=== PATIENT | female | born 1965 | race Caucasian/White ===

== ENCOUNTER 2016-05-07 19:39 | Emergency (ER) | payer MEDICARE, MEDICAID ==
[2008-09-27 23:47] VITALS: BP 129/66
[~2016-05-07] VITALS: Ht 170.2 cm; Wt 154.5 kg
[~2016-05-07 19:39] MED LIST: 00186-0370-20 IH; ABILIFY30 MG PO; ALDACTONE; ALDACTONE50 MG PO; ALTACE 10MG TAB10 MG PO; AMBIEN 10MG10 MG PO; AMBIEN10 MG PO; AMBIEN5 MG PO; ASPIRIN 81M81 MG/TA2 PO; ASPIRIN E.C. 8181 MG PO; BUSPIRONE; BUSPIRONE15 MG PO; CLARITIN; CLEOCIN HCL300 MG PO; CLINDAMYCIN HC150 MG PO; COZAAR; CYMBALTA20 MG PO; DARVOCET-N-101 UDTAB PO; DESYREL; DESYREL DIVIDO150 M1 PO; DEXAMETHASONE4 MG PO; DOXYCYCLINE 10100 MG PO; EPI EZ PEN0.5 MG/ML IM; EPI EZ PEN1 MG/ML IM; EPI-PEN1 MG/ML MR; FLONASE NASAL S16 GM NS; FLONASE0.05 MG/AC NS; GABAPENTIN; GABAPENTIN300 M1 PO; GABAPENTIN800 MG PO; GEODON40 MG PO; GRALISE300 MG PO; HCTZ; HCTZ 25MG TAB25 MG PO; HCTZ 25MG25 MG PO; INDERAL 10MG10 MG PO; INDERAL 20MG20 MG PO; INSULIN LANTIS; LAMICTAL 100MG100 MG PO; LAMICTAL XR200 MG PO; LAMOTRIGINE; LANTUS100 U/ML; LANTUS100 U/ML SC; LORATADINE10 MG PO; LORTAB 5/500 501 TAB PO; METFORMIN1000 MG PO; MINIPRESS 1M1 MG/CAP PO; NAPROSYN PO; NASONEX0.05 MG/AC NS; NEURONTIN300 MG/CAP PO; NEXIUM 40MG40 MG PO; NEXIUM PO; NEXIUM40 MG PO; NORCO 325 MG-101 TAB PO; NORCO 325 MG-51 TAB PO; NOVOLOG 100U100 U/M1 SC; NOVOLOG 100U100 U/ML SQ; NOVOLOG100 U/ML SC; PENICILLIN V250 MG PO; PERCOCET 5/321 UDTAB PO; PHENERGAN 25 TA25 MG PO; PROAIR; PROPRANOLOL10 MG PO; REMERON30 MG PO; ROBAXIN 75750 MG/TAB PO; SEROQUEL 1100 MG/TAB PO; SEROQUEL400 MG PO; SEROQUEL50 MG PO; SYMBICORT1 AE2 IH; SYMBICORT1 AER IH; SYMMETREL100 M1 PO; TEGRETOL 2200 MG/TA1 PO; TEGRETOL200 MG PO; TESSALON PERLE100 MG PO; TRAZODONE HCL100 MG PO; TRILEPTAL300 MG PO; ULTRAM 50MG TAB50 MG PO; VISTARIL50 MG PO; WELLBUTRIN PO; WELLBUTRIN XL300 M1 PO; ZITHROMAX 250M250 MG PO; [UNRECOGNIZED DRUG - OTHER]
[2016-05-07 19:44] VITALS: TEMP 97.6
[2016-05-07 20:16] LABS: BASO % 0.3 % (0.0-2.0); EOS # 0.4 (0.0-0.7); EOS % 3.1 % (0-4.0); GRAN # 10.8 (1.4-6.5); HEMATOCRIT 38.2 % (37.0-47.0); LYMPH # 1.5 (1.2-3.4); LYMPH % 10.6 % (20.0-51.0); MEAN CELL VOLUME 85 fl (80.0-100.0); MEAN CORPUSCULAR HEMOGLOBIN 26 pg (27.0-31.0); MEAN CORPUSCULAR HGB CONC 31 g/dl (33.0-37.0); MEAN PLATELET VOLUME 8.9 fl (7.4-10.4); MONO # 0.9 (0.1-0.6); MONO % 6.4 % (1.7-9.3); PLATELET COUNT 258 K/mm3 (130-400); RED BLOOD COUNT 4.48 M/mm3 (4.10-5.30); REDCELL DISTRIBUTION WIDTH-CV 14.8 % (11.5-14.5); WHITE BLOOD COUNT 13.7 K/mm3 (4.8-10.8)
[2016-05-07 20:19] LABS: HEMOGLOBIN 11.8 g/dl (12.5-16.0)
[2016-05-07 20:31] LABS: ADJUSTED CALCIUM 9.6 mg/dL (8.4-10.2); ALBUMIN 3.9 gm/dL (3.5-5.0); BILIRUBIN,TOTAL 0.7 mg/dL (0.0-1.0); CALCIUM 9.5 mg/dL (8.4-10.2); CREATININE, serum 0.84 mg/dL (0.52-1.25); POTASSIUM 4.1 mmol/L (3.4-5.0); TOTAL PROTEIN 7.9 gm/dL (6.4-8.2)
[2016-05-07] MEDS ORDERED: PREDNISONE20 MG PO (21:01)
[2016-05-07] MEDS ORDERED: ZITHROMAX Z PA250 MG PO (21:01)
[2016-05-07 21:42] VITALS: BP 124/100; PULSE 90
== END 2016-05-07 21:47 | disposition home or self-care (01) ==
LOC: COL.ER 19:39
PROVIDERS: Family Medicine
DX: J20.9 Acute bronchitis, unspecified (principal)
CPT/HCPCS: J0696; J2930

== ENCOUNTER → 2016-06-03 | Outpatient (CLI) | payer MEDICARE, MEDICAID ==
[~2016-06-03] MED LIST changes: +PREDNISONE20 MG PO; +ZITHROMAX Z PA250 MG PO
[2016-06-03 16:37] LABS: HEMATOCRIT 37.5 % (37.0-47.0); MEAN CELL VOLUME 85 fl (80.0-100.0); MEAN CORPUSCULAR HEMOGLOBIN 26 pg (27.0-31.0); MEAN CORPUSCULAR HGB CONC 31 g/dl (33.0-37.0); MEAN PLATELET VOLUME 9.3 fl (7.4-10.4); PLATELET COUNT 204 K/mm3 (130-400); RED BLOOD COUNT 4.42 M/mm3 (4.10-5.30); REDCELL DISTRIBUTION WIDTH-CV 15.1 % (11.5-14.5); WHITE BLOOD COUNT 7.2 K/mm3 (4.8-10.8)
[2016-06-03 16:39] LABS: HEMOGLOBIN 11.5 g/dl (12.5-16.0)
[2016-06-03 17:07] LABS: ADJUSTED CALCIUM 9.6 mg/dL (8.4-10.2); ALBUMIN 3.5 gm/dL (3.5-5.0); BILIRUBIN,TOTAL 0.4 mg/dL (0.0-1.0); CALCIUM 9.2 mg/dL (8.4-10.2); CARBAMAZEPINE (TEGRETOL) 7.7 ug/mL (4.0-12.0); CREATININE, serum 0.78 mg/dL (0.52-1.25); POTASSIUM 3.7 mmol/L (3.4-5.0); TOTAL PROTEIN 6.6 gm/dL (6.4-8.2)
[2016-06-03 17:09] LABS: LITHIUM 0.8 mmol/L (0.6-1.2)
[2016-06-03 20:38] LABS: THYROID STIMULATING HORMONE 1.25 uIU/mL (0.465-4.680)
== END ==
LOC: COL.LAB 15:29
PROVIDERS: Psychiatry & Neurology Psychiatry
DX: Z01.89 Encounter for other specified special examinations (principal)

== ENCOUNTER → 2016-06-08 | Outpatient (CLI) | payer MEDICARE, MEDICAID | LOC: BHSO 13:14 | DX: F31.32 Bipolar disorder, current episode depressed, moderate (principal) ==

== ENCOUNTER → 2016-07-27 | Outpatient (CLI) | payer MEDICARE, MEDICAID | LOC: BHSO 13:40 | DX: F31.32 Bipolar disorder, current episode depressed, moderate (principal) ==

== ENCOUNTER → 2016-09-23 | Outpatient (CLI) | payer MEDICARE, MEDICAID | LOC: BHSO 14:54 | DX: F31.73 Bipolar disorder, in partial remission, most recent episode manic (principal) ==

== ENCOUNTER → 2016-11-01 | Outpatient (CLI) | payer MEDICARE, MEDICAID | LOC: BHSO 09:34 | DX: F31.74 Bipolar disorder, in full remission, most recent episode manic (principal) ==

== ENCOUNTER → 2016-12-23 | Outpatient (CLI) | payer MEDICARE, MEDICAID | LOC: BHSO 14:36 | DX: F31.73 Bipolar disorder, in partial remission, most recent episode manic (principal) ==

== ENCOUNTER → 2017-02-15 | Outpatient (CLI) | payer MEDICARE, MEDICAID | LOC: BHSO 15:39 | DX: F31.73 Bipolar disorder, in partial remission, most recent episode manic (principal) ==

== ENCOUNTER → 2017-04-19 | Outpatient (CLI) | payer MEDICARE, MEDICAID | LOC: BHSO 14:34 | DX: F31.73 Bipolar disorder, in partial remission, most recent episode manic (principal) | CPT/HCPCS: G0463 ==

== ENCOUNTER → 2017-06-08 | Outpatient (CLI) | payer MEDICARE, MEDICAID ==
[2017-06-08 11:33] LABS: BASO % 0.3 % (0.0-2.0); EOS # 0.3 (0.0-0.7); GRAN # 6.5 (1.4-6.5); GRAN % 74.2 % (42.2-75.2); HEMATOCRIT 41.6 % (37.0-47.0); HEMOGLOBIN 12.8 g/dl (12.5-16.0); LYMPH # 1.5 (1.2-3.4); LYMPH % 16.9 % (20.0-51.0); MEAN CELL VOLUME 89 fl (80.0-100.0); MEAN CORPUSCULAR HEMOGLOBIN 27 pg (27.0-31.0); MEAN CORPUSCULAR HGB CONC 31 g/dl (33.0-37.0); MEAN PLATELET VOLUME 9.4 fl (7.4-10.4); MONO # 0.4 (0.1-0.6); MONO % 4.9 % (1.7-9.3); PLATELET COUNT 212 K/mm3 (130-400); RED BLOOD COUNT 4.68 M/mm3 (4.10-5.30); REDCELL DISTRIBUTION WIDTH-CV 14.6 % (11.5-14.5)
[2017-06-08 11:52] LABS: ALBUMIN 3.8 gm/dL (3.5-5.0); BILIRUBIN,TOTAL 0.3 mg/dL (0.0-1.0); CALCIUM 9.7 mg/dL (8.4-10.2); CARBAMAZEPINE (TEGRETOL) 8.4 ug/mL (4.0-12.0); CREATININE, serum 0.83 mg/dL (0.52-1.25); POTASSIUM 4.2 mmol/L (3.4-5.0)
[2017-06-08 11:54] LABS: LITHIUM 0.8 mmol/L (0.6-1.2)
[2017-06-08 11:58] LABS: CHOLESTEROL RISK RATIO 3.7
[2017-06-08 11:58] LABS: TRICYCLIC ANTIDEPRESS URINE NEGATIVE
[2017-06-08 12:19] LABS: THYROID STIMULATING HORMONE 2.33 uIU/mL (0.465-4.680)
== END ==
LOC: COL.LAB 10:45
PROVIDERS: Psychiatry & Neurology Psychiatry
DX: Z13.89 Encounter for screening for other disorder (principal); Z79.899 Other long term (current) drug therapy

== ENCOUNTER → 2017-12-05 | Outpatient (CLI) | payer MEDICARE, MEDICAID ==
[2017-12-05 11:05] LABS: RED BLOOD COUNT 4.86 M/mm3 (4.10-5.30)
[2017-12-05 11:06] LABS: BASO % 0.3 % (0.0-2.0); EOS # 0.3 (0.0-0.7); EOS % 2.9 % (0-4.0); GRAN # 8.5 (1.4-6.5); GRAN % 75.8 % (42.2-75.2); HEMATOCRIT 42.6 % (37.0-47.0); HEMOGLOBIN 13.2 g/dl (12.5-16.0); LYMPH # 1.8 (1.2-3.4); LYMPH % 15.6 % (20.0-51.0); MEAN CELL VOLUME 88 fl (80.0-100.0); MEAN CORPUSCULAR HEMOGLOBIN 27 pg (27.0-31.0); MEAN CORPUSCULAR HGB CONC 31 g/dl (33.0-37.0); MEAN PLATELET VOLUME 9.4 fl (7.4-10.4); MONO # 0.5 (0.1-0.6); MONO % 4.5 % (1.7-9.3); PLATELET COUNT 220 K/mm3 (130-400); REDCELL DISTRIBUTION WIDTH-CV 15.7 % (11.5-14.5)
[2017-12-05 11:16] LABS: ALBUMIN 3.8 gm/dL (3.5-5.0); BILIRUBIN,TOTAL 0.4 mg/dL (0.0-1.0); CALCIUM 9.2 mg/dL (8.4-10.2); CHOLESTEROL RISK RATIO 3.4; CREATININE, serum 0.89 mg/dL (0.52-1.25); POTASSIUM 4.3 mmol/L (3.4-5.0); TOTAL PROTEIN 7.2 gm/dL (6.4-8.2)
[2017-12-05 11:20] LABS: LITHIUM 1.2 mmol/L (0.6-1.2)
[2017-12-05 11:45] LABS: THYROID STIMULATING HORMONE 2.08 uIU/mL (0.465-4.680)
== END ==
LOC: COL.LAB 10:13
PROVIDERS: Counselor
DX: Z79.899 Other long term (current) drug therapy (principal)

== ENCOUNTER → 2018-02-07 | Outpatient (CLI) | payer MEDICARE, MEDICAID ==
[2018-02-07 10:07] LABS: BASO % 0.3 % (0.0-2.0); EOS # 0.4 (0.0-0.7); EOS % 3.4 % (0-4.0); GRAN # 9.2 (1.4-6.5); GRAN % 75.6 % (42.2-75.2); HEMATOCRIT 43.6 % (37.0-47.0); HEMOGLOBIN 13.8 g/dl (12.5-16.0); LYMPH # 1.8 (1.2-3.4); LYMPH % 14.6 % (20.0-51.0); MEAN CELL VOLUME 87 fl (80.0-100.0); MEAN CORPUSCULAR HEMOGLOBIN 28 pg (27.0-31.0); MEAN CORPUSCULAR HGB CONC 32 g/dl (33.0-37.0); MEAN PLATELET VOLUME 9.5 fl (7.4-10.4); MONO # 0.7 (0.1-0.6); MONO % 5.4 % (1.7-9.3); PLATELET COUNT 238 K/mm3 (130-400); REDCELL DISTRIBUTION WIDTH-CV 15.4 % (11.5-14.5)
== END ==
LOC: COL.LAB 09:32
PROVIDERS: Psychiatry & Neurology Psychiatry
DX: Z79.899 Other long term (current) drug therapy (principal)

== ENCOUNTER → 2018-02-27 | Outpatient (CLI) | payer MEDICARE, MEDICAID ==
[2018-02-27 12:18] LABS: BASO % 0.3 % (0.0-2.0); EOS # 0.2 (0.0-0.7); EOS % 1.9 % (0-4.0); GRAN # 7.8 (1.4-6.5); GRAN % 72.7 % (42.2-75.2); HEMATOCRIT 45.3 % (37.0-47.0); HEMOGLOBIN 14.1 g/dl (12.5-16.0); LYMPH # 2.1 (1.2-3.4); LYMPH % 19.9 % (20.0-51.0); MEAN CELL VOLUME 87 fl (80.0-100.0); MEAN CORPUSCULAR HEMOGLOBIN 27 pg (27.0-31.0); MEAN CORPUSCULAR HGB CONC 31 g/dl (33.0-37.0); MEAN PLATELET VOLUME 9.4 fl (7.4-10.4); MONO # 0.5 (0.1-0.6); MONO % 4.6 % (1.7-9.3); PLATELET COUNT 232 K/mm3 (130-400); REDCELL DISTRIBUTION WIDTH-CV 14.5 % (11.5-14.5)
[2018-02-27 12:41] LABS: ALANINE AMINOTRANSFERASE 27 U/L (9-52); ALBUMIN 3.9 gm/dL (3.5-5.0); ALKALINE PHOSPHATASE 112 U/L (50-136); ANION GAP 9 mmol/L (7-16); AST,SGOT 18 U/L (15-37); BILIRUBIN,TOTAL 0.3 mg/dL (0.0-1.0); BLOOD UREA NITROGEN 12 mg/dL (7-17); CALCIUM 9.4 mg/dL (8.4-10.2); CARBON DIOXIDE 27 mmol/L (22-30); CHLORIDE 101 mmol/L (98-107); CREATININE, serum 0.72 mg/dL (0.52-1.25); GLUCOSE 134 mg/dL (74-106); POTASSIUM 4.1 mmol/L (3.4-5.0); SODIUM 137 mmol/L (137-145); TOTAL PROTEIN 7.1 gm/dL (6.4-8.2)
[2018-02-27 12:43] LABS: LITHIUM < 0.2 mmol/L (0.6-1.2)
== END ==
LOC: COL.LAB 11:29
PROVIDERS: Counselor
DX: Z79.899 Other long term (current) drug therapy (principal)

== ENCOUNTER → 2022-05-24 | Outpatient (RCR) | payer MEDICARE, MEDICAID | END | disposition home or self-care (01) | LOC: WSST | DX: R13.10 Dysphagia, unspecified (principal) ==

== ENCOUNTER → 2022-06-01 | Outpatient (CLI) | payer MEDICARE, MEDICAID | LOC: COL.RAD 08:30 | DX: R13.10 Dysphagia, unspecified (principal) ==

== ENCOUNTER 2022-06-15 10:00 | Outpatient (RCR) | payer MEDICARE, MEDICAID | END 2022-06-21 | disposition home or self-care (01) | LOC: WSST | DX: R13.10 Dysphagia, unspecified (principal) ==